=== PATIENT | female | born 1985 | race Caucasian/White ===

== ENCOUNTER 2018-10-20 15:50 | Emergency (ER) | payer BC, SELFPAY ==
[2018-10-20 15:52] VITALS: BP 122/68; PULSE 125; RESP 16; TEMP 37.3; O2SAT 97; BMI 29.2
--- NOTE | 2018-10-20 16:08 | ED.VISSUMM ---
- ER Visit Summary Date of Service: 10/20/18 Chief Complaint: Cough History of Present Illness: The patient is a 33 F who presents with cough that has been getting worse over the past 4 days. Patient states she thinks she inhaled a small piece of a cashew 4 days ago. Patient states the cough began after that. Patient admits to fevers and chills. Patient is visiting from out of town and went to urgent care. Patient was referred here because of a tachycardia and fever. Patient is approximately 23 weeks . Patient denies any sputum production. Patient admits to some nausea but thinks that is related to the . Patient admits to some episodes where she feels like her heart is racing. Physical Examination: Vital signs are stable except for tachycardia of 125. Patient is afebrile here. Patient is in no acute distress. Oromucosa is pink and moist. Neck is supple. Trachea is midline. There is no JVD noted. Heart was regular and tachycardic with occasional ectopics. Lungs are clear and equal bilaterally. Abdomen is soft. Bowel sounds are normal. There is no tenderness. Cranial nerves II through XII are intact. There are no focal motor or sensory deficits noted. Test Results: CBC and basic metabolic profile were essentially within normal limits. Patient request to be tested for influenza. This was positive for influenza A. A chest x-ray was ordered to evaluate for possible aspiration pneumonia however, the patient declined at this time. Emergency Department Course and Treatment: Patient was given IV fluids here. Patient was instructed to drink plenty of fluids. Patient was instructed that since this has been going on for 4 days, Tamiflu is not indicated at this time. Patient was instructed to continue symptomatic treatment. Patient was instructed to follow-up with her primary care physician in 5 to 7 days. Patient understood and was agreeable with the plan. All questions were answered. Disposition: Discharge home Impression: Influenza This note was generated with nprogress dictation software. It may contain incorrect words, spelling, and punctuation that were not noted in review of the chart prior to signing ED Disposition - Plan for ED Patient: Disposition: Home or Assisted Living Diagnosis: Influenza A Instructions: INFLUENZA (Adult) Referrals: Care Physician,No Primary [Primary Care Provider] - 5-7 Days
[2018-10-20 16:10] VITALS: PULSE 124; RESP 18; TEMP 37.3; O2SAT 98
[2018-10-20] MEDS: 0.9% Normal Saline 1,000 ML 1000 ML IV (16:24)
[2018-10-20 16:43] LABS: Anion Gap 5 (5-15); BUN 6 mg/dL (7-18); BUN/Creat Ratio 11.2 RATIO (10-20); Chloride 103 mmol/L (98-107); Creatinine, Serum 0.53 mg/dL (0.55-1.02); EST Glomerular Filtration Rate 142 mL/min (>60); Est Glom Filt Rate - Afr Amer 171 mL/min (>60); Estimated Creatinine Clearance 143.98 ml/min; Glucose 105 mg/dL (74-106); Potassium 3.3 mmol/L (3.5-5.1); Sodium Level 134 mmol/L (136-145)
[2018-10-20 16:48] LABS: Absolute Lymphocyte Count 0.39 X10^3/ul (0.83-4.51); Basophil# 0.01 X10^3/uL; Basophil% 0.2 % (0-1); Differential Indicated SCAN CRITERIA MET; Eosinophil# 0.01 X10^3/uL; Eosinophils% 0.2 % (0-5); Hematocrit 37.2 % (37-47); Hemoglobin 13.1 g/dl (12.0-15.0); Lymphocyte # 0.39 X10^3/ul (4.0); Lymphocyte % 6.1 % (19-41); Mean Corp Hgb Conc 35.2 g/gl (32-36); Mean Corpuscular Hgb 32.3 pg (27.0-32.0); Mean Corpuscular Volume 91.6 fL (81-99); Mean Platelet Vol. 9.7 fl (6.2-12.0); Monocyte# 0.94 X10^3/uL; Monocyte% 14.8 % (0-10); Neutrophil # 4.95 X10^3/uL (2.7-7.7); Neutrophil % 77.9 % (47-70); POSITIVE COUNT NO; POSITIVE DIFFERENTIAL YES; POSITIVE MORPHOLOGY NO; Platelet Count 150 K/mm3 (150-450); RBC Distribution Width CV 13.2 % (11.6-14.6); RBC Distribution Width SD 44.1 fl (35.1-43.9); Red Blood Count 4.06 M/mm3 (4.2-5.4); White Blood Count 6.4 K/mm3 (4.4-11.0)
[2018-10-20 17:05] VITALS: PULSE 121; RESP 18; TEMP 37.4; O2SAT 98
[2018-10-20 17:09] LABS: Differential Comment SCANNED
[2018-10-20 18:06] VITALS: BP 106/65; PULSE 100; RESP 17; TEMP 37.4
== END 2018-10-20 18:09 | disposition home or self-care (01) ==
PROVIDERS: Emergency Provider Emergency Medicine
DX: O99.89 Other specified diseases and conditions complicating pregnancy, childbirth and the puerperium (principal); J10.1 Influenza due to other identified influenza virus with other respiratory manifestations; Z3A.23 23 weeks gestation of pregnancy
CPT/HCPCS: 80048; 85025; 87804; 96360; 96361; 99283